=== PATIENT | male | born 1990 | race Caucasian/White ===

== ENCOUNTER 2021-04-02 07:37 | Emergency (ER) | payer BC ==
[~2021-04-02] VITALS: Wt 99.8 kg
[2021-04-02] MEDS ORDERED: ESCITALOPRAM OX10 MG PO (07:47)
[2021-04-02 08:11] LABS: BASO % 0.3 % (0.0-1.0); EOS # 0.1 10*3/uL (0.0-0.4); EOS % 0.5 % (1.0-4.0); HEMATOCRIT 42.2 % (42.0-52.0); LYMPH # 1.4 10*3/uL (1.3-4.4); LYMPH % 13.7 % (27.0-41.0); MEAN CELL VOLUME 86.1 fl (80.0-94.0); MEAN CORPUSCULAR HGB 28.2 pg (27.0-31.0); MEAN CORPUSCULAR HGB CONC 32.7 g/dl (33.0-37.0); MEAN PLATELET VOLUME 10.2 fl (9.6-12.3); MONO # 0.8 10*3/uL (0.1-1.0); MONO % 7.3 % (3.0-9.0); NEUT % 77.8 % (47.0-73.0); PLATELET COUNT AUTOMATED 204 10*3/uL (130-400); RED CELL DISTRI WIDTH 12.6 % (0-14.5); WHITE BLOOD COUNT 10.3 10*3/uL (4.8-10.8)
[2021-04-02 08:25] LABS: CREATININE 1.75 mg/dL (0.70-1.30); POTASSIUM 4.5 mmol/L (3.5-5.1)
[2021-04-02 08:49] LABS: BILIRUBIN Negative (Negative); BLOOD Trace-Intact (Negative); CLARITY Clear (Clear); COLOR Yellow (Yellow); GLUCOSE Negative (Negative); KETONE Trace (Negative); LEUKO ESTERASE Negative (Negative); NITRITE Negative (Negative); SPECIFIC GRAVITY >= 1.030 (1.001-1.030)
[2021-04-02 09:02] LABS: BACTERIA 1+; CALCIUM OXALATE CRYSTALS 1+; MUCOUS 2+; RBC 21-30 rbc/hpf (0-2)
[2021-04-02] MEDS ORDERED: HYDROCODONE-AC1 EAC1 PO (10:46)
[2021-04-02] MEDS ORDERED: FLOMAX0.4 MG PO (10:46)
[2021-04-02] MEDS ORDERED: ZOFRAN4 MG PO (10:46)
== END 2021-04-02 11:20 | disposition home or self-care (01) ==
LOC: ED 07:37
PROVIDERS: Family Medicine
DX: N20.0 Calculus of kidney (principal); Z79.899 Other long term (current) drug therapy

== ENCOUNTER 2022-04-28 10:29 | Emergency (ER) | payer BC ==
[~2022-04-28] VITALS: Ht 177.8 cm; Wt 99.8 kg
[~2022-04-28 10:29] MED LIST: ESCITALOPRAM OX10 MG PO; FLOMAX0.4 MG PO; HYDROCODONE-AC1 EAC1 PO; ZOFRAN4 MG PO
[2022-04-28 11:10] LABS: BASO % 0.3 % (0.0-1.0); EOS # 0.1 10*3/uL (0.0-0.4); EOS % 1.4 % (1.0-4.0); HEMATOCRIT 44.6 % (42.0-52.0); LYMPH # 1.7 10*3/uL (1.3-4.4); LYMPH % 23.9 % (27.0-41.0); MEAN CELL VOLUME 85.3 fl (80.0-94.0); MEAN CORPUSCULAR HGB 29.8 pg (27.0-31.0); MONO # 0.4 10*3/uL (0.1-1.0); MONO % 5.4 % (3.0-9.0); NEUT # 4.7 10*3/uL (2.3-7.9); NEUT % 68.4 % (47.0-73.0); PLATELET COUNT AUTOMATED 239 10*3/uL (130-400); RED BLOOD COUNT 5.23 10*6/uL (4.50-5.90); RED CELL DISTRI WIDTH 12.2 % (0-14.5); WHITE BLOOD COUNT 6.9 10*3/uL (4.8-10.8)
[2022-04-28 11:29] LABS: ALKALINE PHOSPHATASE 58 U/L (45-117); BUN 15 mg/dl (7-24); CHLORIDE 108 mmol/L (98-107); CREATININE 1.14 mg/dL (0.70-1.30); LIPASE 163 U/L (73-393); POTASSIUM 4.3 mmol/L (3.5-5.1); SGOT/AST 14 IU/L (3-35); SGPT/ALT 31 U/L (12-78); SODIUM 139 mmol/L (136-145); TOTAL PROTEIN 7.1 gm/dL (6.4-8.2)
[2022-04-28 13:26] LABS: BILIRUBIN Negative (Negative); BLOOD 3+ (Negative); CLARITY Cloudy (Clear); COLOR Yellow (Yellow); GLUCOSE Negative (Negative); KETONE Negative (Negative); LEUKO ESTERASE Trace (Negative); NITRITE Negative (Negative); PH 5.5 (4.5-8.0); SPECIFIC GRAVITY 1.025 (1.001-1.030); UROBILINOGEN 0.2 E.U./dl (0.0-1.0)
[2022-04-28 13:38] LABS: RBC 51-100 rbc/hpf (0-2)
[2022-04-28 13:39] LABS: BACTERIA 2+; MUCOUS 1+
[2022-04-28] MEDS ORDERED: FLOMAX0.4 MG PO (14:08)
[2022-04-28] MEDS ORDERED: Phenergan25 MG PO (14:08)
[2022-04-28] MEDS ORDERED: Motrin,Rufen800 MG PO (14:08)
[2022-04-28] MEDS ORDERED: HYDROCODONE-AC1 EACH PO (14:08)
== END 2022-04-28 14:41 | disposition home or self-care (01) ==
LOC: ED 10:29
PROVIDERS: Nurse Practitioner Family
DX: N13.2 Hydronephrosis with renal and ureteral calculous obstruction (principal); Z87.442 Personal history of urinary calculi; Z79.899 Other long term (current) drug therapy